=== PATIENT | female | born 1980 | race Caucasian/White ===

== ENCOUNTER 2019-07-18 | Emergency (ER) | payer OTHER ==
[~2019-07-18] VITALS: Ht 144.8 cm; Wt 58.6 kg
[2019-07-18] MEDS ORDERED: METHYLPREDNISOLONE SOD SUCC 125 MG/2 ML VIAL IM STA (03:56)
[2019-07-18] MEDS ORDERED: KETOROLAC 60MG/2ML VIAL IM STA (03:56)
[2019-07-18] MEDS ORDERED: ONDANSETRON 4MG ODT PO STA (03:59)
[2019-07-18] MEDS ORDERED: ACETAMINOPHEN 325MG TABLET PO STA (03:59)
[2019-07-18 04:14] LABS: BASOPHILS % 0.6 % (0.0-2.0); EOSINOPHILS % 1.7 % (0.0-5.0); HEMATOCRIT. 39.1 % (36.0-48.0); HEMOGLOBIN. 12.8 g/dL (12.0-16.0); LYMPHOCYTES % 29.2 % (20.0-50.0); MEAN CORPUSCULAR HEMOGLOBIN 28.4 pg (28.0-32.0); MEAN CORPUSCULAR VOLUME 86.9 fL (81.0-99.0); MEAN PLATELET VOLUME 9.7 fl (7.4-10.4); MONOCYTES % 5.7 % (2.0-8.0); NEUTROPHILS % 62.8 % (40.0-76.0); PLATELET 267 x1000/uL (130-400); RED CELL DISTRIBUTION WIDTH 20.6 % (11.6-14.6)
[2019-07-18 04:21] LABS: CHLORIDE 108 mEq/L (98-107)
[2019-07-18 04:36] LABS: CLARITY URINE CLEAR (CLEAR); COLOR URINE YELLOW (YELLOW); KETONES URINE NEGATIVE (NEGATIVE); LEUKOCYTE ESTERASE URINE NEGATIVE (NEGATIVE); NITRITE URINE NEGATIVE (NEGATIVE); OCCULT BLOOD URINE 2+ (NEGATIVE); PH URINE 5.5 (4.5-8.0); PROTEIN URINE NEGATIVE (NEGATIVE); SPECIFIC GRAVITY URINE 1.013 (1.005-1.030); UROBILINOGEN URINE 0.2 E.U./dL (0.2-1.0)
[2019-07-18 05:25] VITALS: BP 129/79
== END 2019-07-18 05:25 | disposition home or self-care (01) ==
LOC: ER 00:55
DX: R42 Dizziness and giddiness (principal); R06.02 Shortness of breath; R51 Headache; D64.9 Anemia, unspecified; Z98.890 Other specified postprocedural states
CPT/HCPCS: 36415; 71045; 80048; 81003; 81025; 85025; 99284; Q0162; J1885; J2930

== ENCOUNTER 2020-05-14 22:56 | Emergency (ER) | payer OTHER ==
[~2020-05-14] VITALS: Ht 149.9 cm; Wt 54.0 kg
[2020-05-15] MEDS ORDERED: ALBUTEROL 6.7GM HFA INHALER ORI ONE
[2020-05-15] MEDS ORDERED: ACETAMINOPHEN 325MG TABLET PO ONE
[2020-05-15 01:46] VITALS: BP 109/78
== END 2020-05-15 01:50 | disposition home or self-care (01) ==
LOC: ER 22:56
DX: J06.9 Acute upper respiratory infection, unspecified (principal); Z98.890 Other specified postprocedural states
CPT/HCPCS: 71045; 94640; 99283; Z7610

== ENCOUNTER 2023-03-10 02:13 | Emergency (ER) | payer OTHER ==
[~2023-03-10] VITALS: Ht 149.9 cm; Wt 63.5 kg
[2023-03-10 03:06] VITALS: BP 166/85; PULSE 116; RESP 17; TEMP 98.9; O2SAT 100
[2023-03-10] MEDS ORDERED: IBUP-2029 MT (03:57)
[2023-03-10] MEDS ORDERED: CLIN-194 MT (03:57)
[2023-03-10] MEDS ORDERED: CLINDAMYCIN HCL 150MG CAPSULE PO SCH (06:00)
== END 2023-03-10 04:26 | disposition home or self-care (01) ==
LOC: ER 02:13
DX: K04.7 Periapical abscess without sinus (principal); Z98.890 Other specified postprocedural states
CPT/HCPCS: 99283